=== PATIENT | male | born 2000 | race Caucasian/White ===

== ENCOUNTER → 2022-06-02 | Outpatient (CLI) | payer BC ==
--- NOTE | 2022-06-02 12:24 | CT ---
EXAMINATION TYPE: CT soft tissue neck w con DATE OF EXAM: 06/02/2022 COMPARISON: None HISTORY: LOCALIZED SWELLING, MASS AND LUMP, NECK on Rt side. pt states recent dx of strep and mono CT DLP: 392.50 mGycm CONTRAST: CT scan of the neck is performed with IV Contrast, patient injected with 70 mL of Isovue 300. Contrast enhanced CT of the neck was performed from the skull base through the lung apices. AIRWAY: There is prominence of the tonsillar pillars bilaterally without evidence for abscess. The supraglottic, glottic, and subglottic portions of the airway appear patent and free of mass. SALIVARY GLANDS: The parotid glands are free of mass or inflammatory process. Asymmetric fullness of the right submandibular gland relative to its left-sided counterpart. No distinct mass is appreciate d. THYROID GLAND: No nodules or masses seen. LYMPH NODES: No enlarged lymph nodes bilaterally within the internal jugular chains and posterior tri angles measuring up to 1.7 cm on the right and 2.1 cm on the left. LUNG APICES: No nodule or mass is seen. OTHER: Vascular structures are patent. No significant degenerative change of the cervical spine. N o abscess seen. IMPRESSION: 1. Correlate for tonsillitis. 2. Adenopathy as noted. 3. Mild fullness of the right submandibular gland
== END | disposition home or self-care (01) ==
LOC: RADCTMAIN 11:40
PROVIDERS: ATTEND Family Medicine
DX: J03.80 Acute tonsillitis due to other specified organisms (principal); B27.89 Other infectious mononucleosis with other complication; R22.1 Localized swelling, mass and lump, neck
CPT/HCPCS: 70491; Q9967

== ENCOUNTER 2022-06-05 11:35 | Emergency (ER) | payer BC ==
[2022-06-05 12:08] VITALS: BP 116/67; PULSE 76; RESP 16; TEMP 97.5
--- NOTE | 2022-06-05 12:21 | ED ---
ENT HPI - General Chief complaint: ENT Stated complaint: Dental Issue/Facial Swelling Time Seen by Provider: 06/05/22 11:39 Source: patient, RN notes reviewed Mode of arrival: ambulatory Limitations: no limitations - History of Present Illness Initial comments: 21-year-old male presents emergency from chief complaint of swelling on the right side of his neck. Patient states that he was diagnosed with mild to days ago states his pain greatly improved after being started on steroids. Patient states that overnight he developed swelling over his tongue, right mandibular region. He states that he passed a stone just prior arrival is actually feeling a little better states is still painful, swollen reports subjective fevers. - Related Data Previous Rx's Medication Instructions Recorded clindamycin HCL 300 mg PO QID #28 cap 06/05/22 Allergies Allergy/AdvReac Type Severity Reaction Status Date / Time No Known Allergies Allergy Verified 06/05/22 12:07 Review of Systems ROS Statement: Those systems with pertinent positive or pertinent negative responses have been documented in the HPI. ROS Other: All systems not noted in ROS Statement are negative. Past Medical History Additional Past Medical History / Comment(s): hydrocele, mono History of Any Multi-Drug Resistant Organisms: None Reported Past Surgical History: No Surgical Hx Reported Past Psychological History: No Psychological Hx Reported Smoking Status: Never smoker Past Alcohol Use History: None Reported Past Drug Use History: None Reported General Exam Limitations: no limitations General appearance: alert, in no apparent distress Head exam: Present: atraumatic, normocephalic, normal inspection Eye exam: Present: normal appearance, PERRL, EOMI. Absent: scleral icterus, conjunctival injection, periorbital swelling ENT exam: Present: mucous membranes moist. Absent: normal exam, normal oropha rynx (Right some or swelling, swelling at mandibular.) Neck exam: Present: normal inspection, full ROM. Absent: tenderness, meningismus, lymphadenopathy Respiratory exam: Present: normal lung sounds bilaterally. Absent: respiratory distress, wheezes, rales, rhonchi, stridor Cardiovascular Exam: Present: regular rate, normal rhythm, normal heart sounds. Absent: systolic murmur, diastolic murmur, rubs, gallop, clicks Neurological exam: Present: alert Course Vital Signs 06/05/22 12:03 Temperature 97.5 F L Pulse Rate 76 Respiratory 16 Rate Blood Pressure 116/67 O2 Sat by Pulse 97 Oximetry Medical Decision Making - Medical Decision Making 21-year-old male presented for swelling on the right mandibular region. Patient has obstructed mandibular., patient did pass a stone may have sold issue at this time though slight concern for infection. Patient will not be given Augmentin as he has recently mono infection. Patient discharged on clindamycin return parameters were discussed. We did discuss use of sour candies Disposition Clinical Impression: Salivary duct obstruction, Sialadenitis Disposition: HOME SELF-CARE Condition: Stable Instructions (If sedation given, give patient instructions): Sialoadenitis (ED) Additional Instructions: Please return to the Emergency Department if symptoms worsen or any other concerns. Prescriptions: clindamycin HCL 300 mg PO QID #28 cap Is patient prescribed a controlled substance at d/c from ED?: No Referrals: Lobo Frankel DO [Primary Care Provider] - 1-2 days Time of Disposition: 12:21
== END 2022-06-05 12:57 | disposition home or self-care (01) ==
LOC: EC 11:35
DX: K11.8 Other diseases of salivary glands (principal); K11.20 Sialoadenitis, unspecified
CPT/HCPCS: 99282